=== PATIENT | female | born 1985 | race American Indian/Alaskan Native ===

== ENCOUNTER 2020-01-10 15:10 | Emergency (ER) | payer SELFPAY ==
[2020-01-10 15:19] VITALS: BP 154/100
--- NOTE | 2020-01-10 15:48 | Emergency Department Report ---
Chief Complaint: Medical Clearance Stated Complaint: TEST POSS COVID Time Seen by Provider: 01/10/20 15:33 - HPI History of Present Illness: This is a 34-year-old F [place] female who presents to the emergency room with recent positive chlamydia testing. No significant past medical history. Patient states she was tested on her job last Wednesday and received positive results today. She was sent to the emergency room from her job which is a half-way. Patient denies chest pain, shortness of breath, fever, chills, myalgia, change in smell or taste. - ROS Review of Systems: All systems review with no complaints. - Exam Vital Signs: Vital Signs 01/10/20 15:13 Temperature 98.9 F Pulse Rate 70 Respiratory 18 Rate Blood Pressure 154/100 O2 Sat by Pulse 99 Oximetry Physical Exam: - General Limitations: No Limitations General appearance: alert, in no apparent distress - Respiratory Respiratory exam: Present: normal lung sounds bilaterally. Absent: respiratory distress - Cardiovascular Cardiovascular Exam: Present: regular rate, normal rhythm. Absent: systolic murmur, diastolic murmur, rubs, gallop - GI/Abdominal GI/Abdominal exam: Present: soft, normal bowel sounds - Extremities Exam Extremities exam: Present: normal inspection - Neurological Exam Neurological exam: Present: alert, oriented X3 - Psychiatric Psychiatric exam: Present: normal affect, normal mood - Skin Skin exam: Present: warm, dry, intact, normal color. Absent: rash MSE screening note: Focused history and physical exam performed. Due to findings the following was ordered: ED Medical Decision Making - Medical Decision Making This is a 34-year-old female who presents to the emergency room with positive COVID-19 results. Vitals are stable and patient in no acute distress. Patient is asymptomatic at this time. No significant past medical history. Patient denies recent or in the past 6 months. Labs and imaging deferred at this time. Patient instructed to start 14-day quarantine and avoid everyone because she is highly contagious.. Follow-up with a primary care doctor. A list of primary care doctors were provided to the patient for follow- up. Return to the emergency room only if worsening symptoms. Patient discharged home stable. ED Disposition for MSE Disposition: MED SCREENING EXAM-LEFT Condition: Stable Instructions: COVID-19 Referrals: RUSS FLANNERY MD [Staff Physician] - 3-5 Days KALEN RICH MD [Staff Physician] - 3-5 Days Forms: Work/School Release Form(ED) Time of Disposition: 15:45
== END 2020-01-10 15:53 | disposition left against medical advice (07) ==
LOC: ED 15:10
DX: U07.1 COVID-19 (principal)
CPT/HCPCS: 99282